=== PATIENT | female | born 1990 | race African-American/Black ===

== ENCOUNTER 2019-01-20 15:45 | Emergency (ER) | payer OTHER ==
[2019-01-20 16:03] VITALS: BP 98/61; PULSE 78; TEMP 98.1; BMI 21.4
--- NOTE | 2019-01-20 16:07 | PDOC ---
Attending Attestation - HPI HPI: 01/20/19 18:13 The patient is a 28 year old female, from [facility], with a significant past medical history of multi-substance abuse with EtOH dependence who presents to the emergency department intoxicated with seizure like symptoms. Patient reports she told [facility] that she had a shaking episode prior to her arrival to the ED. The patient reports she fell yesterday but is unsure if she hit her head. Patient notes her last drink was this morning but has a history of drinking 1 bottle of vodka per day. Patient is a poor historian. The patient denies chest pain, or shortness of breath The patient denies fever, chills, nausea, vomit, diarrhea or constipation. Allergies: NKDA Past surgical history: None reported Social history: multi-substance abuse with EtOH PCP: Dr. Kylie Delacruz - Physicial Exam PE: 01/20/19 18:14 GENERAL: (+) tremors, (+) intoxicated, (+) poor historian. Awake, alert, in no acute distress HEAD: No signs of trauma EYES: PERRLA, EOMI, sclera anicteric, conjunctiva clear ENT: (+) tongue fasciculation. Auricles normal inspection, hearing grossly normal, nares patent, oropharynx clear without exudates. Moist mucosa NECK: Normal ROM, supple, no lymphadenopathy, JVD, or masses LUNGS: Breath sounds equal, clear to auscultation bilaterally. No wheezes, and no crackles HEART: Regular rate and rhythm, normal S1 and S2, no murmurs, rubs or gallops ABDOMEN: Soft, nontender, normoactive bowel sounds. No guarding, no rebound. No masses EXTREMITIES: Normal range of motion, no edema. No clubbing or cyanosis. No cords, erythema, or tenderness NEUROLOGICAL: Cranial nerves II through XII grossly intact. Normal speech, normal gait SKIN: Warm, Dry, normal turgor, no rashes or lesions noted. <Kylah Logan - Last Filed: 01/20/19 18:13> - Resident Resident Name: Bib Swartz - ED Attending Attestation I have performed the following: I have examined & evaluated the patient, The case was reviewed & discussed with the resident, I agree w/resident's findings & plan, Exceptions are as noted - Medical Decision Making 01/20/19 16:07 I, Dr. Lizzie Rodriguez DO, attest that this document has been prepared under my direction and personally reviewed by me in its entirety. I further attest, that it accurately reflects all work, treatment, procedures and medical decision -making performed by me. 01/20/19 17:11 a/p: 28yo female with etoh and substance abuse -pt sent from [facility] for poss seizure activity -pt denies seizure today, states she fell going up the stairs yesterday, poss seizure activity bc she remembers her limbs shaking. unsure if loc. no tongue biting or loss of urine/bowel control -will send labs, mild hand tremors and tongue fasciculations -will give banana bag and librium -will medically clear for park care 01/20/19 20:12 h/h stable low tsh, will need free t4 alcohol pending pt up and walking around the ED, speaking in clear sentences 01/20/19 20:13 pt has walked out of the ED. pt has eloped from the ED <Lizzie Rodriguez - Last Filed: 01/20/19 20:14> *DC/Admit/Observation/Transfer <Lizzie Rodriguez - Last Filed: 01/20/19 20:14> Diagnosis at time of Disposition: Alcohol dependence - Discharge Dispostion Disposition: ELOPED Condition at time of disposition: Unchanged/Unknown - Referrals Referrals: Kylie Delacruz MD [Primary Care Provider] - - Patient Instructions - Post Discharge Activity Heart Score/ECG Review - ECG Intrepretation Comment:: 01/20/19 17:53 sinus at 89, nl axis, nl interval, no acute st/t wave findings <Lizzie Rodriguez - Last Filed: 01/20/19 20:14> Attestations - Attestations 01/20/19 18:15 Documentation prepared by Kylah Logan, acting as nurses medical assistants phlebotomists for Lizzie Rodriguez DO, MD <Kylah Logan - Last Filed: 01/20/19 18:13>
[2019-01-20] MEDS ORDERED: FOLIC ACID INJECTION - 1 MG, THIAMINE HCL 100 MG, MULTIVIT INJECTION ADULT 10 ML in SOD... IVPB ONE (16:40)
[2019-01-20] MEDS ORDERED: chlordiazePOXIDE HCL 25 MG CAPSULE PO ONE (16:41)
--- NOTE | 2019-01-20 16:55 | PDOC ---
History of Present Illness - General Chief Complaint: Alcohol intoxication Stated Complaint: Syncope/Near Syncope Time Seen by Provider: 01/20/19 16:00 - History of Present Illness Initial Comments: 01/20/19 16:50 28 yo F h/o muti-substance abuse with EtOH dependence sent from [facility] for seizure activity precaution. She presented to [facility] and told the staff in waiting room that she's about to have a seizure. Patient was then sent to [facility] ED for further evaluation. However, patient stated that she drinks a lot every day since 19 years old, 1 bottle of vodka. Her last drink was this morning 2am. She also endorses headache, L flank pain, shaking, sweaty but denies chest pain , shortness of breath, urinary symptom, n/v, fever or chills. Past History - Past Medical History Allergies/Adverse Reactions: Allergies Allergy/AdvReac Type Severity Reaction Status Date / Time No Known Allergies Allergy Verified 10/02/16 20:39 Home Medications: Ambulatory Orders Citalopram Hydrobromide [Celexa -] 15 mg PO DAILY 01/05/15 Escitalopram Oxalate [Lexapro -] 10 mg PO DAILY 01/05/15 traZODone HCL [Desyrel -] 50 mg PO HS #30 tablet 01/06/15 Citalopram Hydrobromide [Celexa -] 10 mg PO DAILY #90 tablet 10/03/16 Mirtazapine [Remeron -] 15 mg PO HS #30 tablet 10/03/16 Anemia: No Asthma: No Cancer: No Cardiac Disorders: No CVA: No COPD: No CHF: No Dementia: No Diabetes: No GI Disorders: No Disorders: No HTN: No Hypercholesterolemia: No Kidney Stones: No Liver Disease: No Seizures: Yes Thyroid Disease: No - Surgical History Abdominal Surgery: No Appendectomy: No Cardiac Surgery: No Cholecystectomy: No Lung Surgery: No Neurologic Surgery: No Orthopedic Surgery: No - Suicide/Smoking/Psychosocial Hx Smoking History: Never smoked Have you smoked in the past 12 months: No Number of Cigarettes Smoked Daily: 20 'Breaking Loose' booklet given: 10/02/16 Hx Alcohol Use: Yes Drug/Substance Use Hx: No Substance Use Type: Alcohol Hx Substance Use Treatment: Yes Review of Systems - Review of Systems Able to Perform ROS?: Yes Is the patient limited Tristanian proficient: Yes Constitutional: No: Chills, Fever, Weakness Respiratory: No: Cough, Shortness of Breath ABD/GI: No: Diarrhea : Yes: Flank Pain. No: Burning, Dysuria, Hematuria, Urgency Neurological: Yes: Headache, Seizure, Tremors *Physical Exam - Vital Signs Last Vital Signs Temp Pulse Resp BP Pulse Ox 98.1 F 78 16 98/61 100 01/20/19 15:59 01/20/19 15:59 01/20/19 15:59 01/20/19 15:59 01/20/19 15:59 - Physical Exam General Appearance: Yes: Alcohol on Breath, Intoxicated Respiratory/Chest: positive: Lungs Clear, Normal Breath Sounds Cardiovascular: positive: S1, S2, Tachycardia. negative: Murmur Musculoskeletal: positive: CVA Tenderness (L) Neurologic: positive: Alert, Confused, Disoriented (to time) Moderate Sedation - Procedure Monitoring Vital Signs: Procedure Monitoring Vital Signs Temperature 98.1 F 01/20/19 15:59 Pulse Rate 78 01/20/19 15:59 Respiratory Rate 16 01/20/19 15:59 Blood Pressure 98/61 01/20/19 15:59 O2 Sat by Pulse Oximetry (%) 100 01/20/19 15:59 ED Treatment Course - LABORATORY CBC & Chemistry Diagram: 01/20/19 18:20 01/20/19 18:20 *DC/Admit/Observation/Transfer Diagnosis at time of Disposition: Alcohol dependence Qualifiers: Substance use status: unspecified alcohol-induced disorder Qualified Code(s): F10.29 - Alcohol dependence with unspecified alcohol-induced disorder - Discharge Dispostion Disposition: ELOPED Condition at time of disposition: Unchanged/Unknown - Referrals Referrals: Kylie Delacruz MD [Primary Care Provider] - - Patient Instructions - Post Discharge Activity
[2019-01-20 18:30] LABS: BASO % 1.4 % (0-2.0); EOS % 0.9 % (0-4.5); HEMATOCRIT 38.4 % (32.4-45.2); HEMOGLOBIN 13.3 GM/dL (10.7-15.3); LYMPH % 42.9 % (8-40); MCH 31.7 pg (25.7-33.7); MCHC 34.7 g/dl (32.0-36.0); MEAN CELL VOLUME 91.2 fl (80-96); MEAN PLT VOLUME 8.1 fl (7.5-11.1); MONO % 4.8 % (3.8-10.2); RBC 4.21 M/mm3 (3.60-5.2); RDW 18.5 % (11.6-15.6)
[2019-01-20 18:48] LABS: PLATELET COUNT 345 K/MM3 (134-434); PLATELET ESTIMATE ADEQUATE
[2019-01-20 19:28] LABS: ALBUMIN 3.9 g/dl (3.4-5.0); ALK PHOS 84 U/L (45-117); ANION GAP 7 MMOL/L (8-16); BILIRUBIN,TOTAL 0.3 mg/dL (0.2-1); BLOOD UREA NITROGEN 7 mg/dL (7-18); CALCIUM 8.7 mg/dL (8.5-10.1); CHLORIDE 107 mmol/L (98-107); CO2 25 mmol/L (21-32); CREATININE 0.7 mg/dL (0.55-1.3); GLUCOSE,RANDOM 61 mg/dL (74-106); POTASSIUM 4.9 mmol/L (3.5-5.1); SGOT/AST 62 U/L (15-37); SGPT/ALT 23 U/L (13-61); SODIUM 139 mmol/L (136-145); TOT PROT 9.3 g/dl (6.4-8.2)
--- NOTE | 2019-01-21 06:57 | PDOC ---
*Physical Exam - Vital Signs Last Vital Signs Temp Pulse Resp BP Pulse Ox 98.1 F 78 16 98/61 100 01/20/19 15:59 01/20/19 15:59 01/20/19 15:59 01/20/19 15:59 01/20/19 15:59 ED Treatment Course - LABORATORY CBC & Chemistry Diagram: 01/20/19 18:20 01/20/19 18:20 - ADDITIONAL ORDERS Additional order review: Laboratory Results 01/20/19 01/20/19 01/20/19 20:04 18:26 18:20 Sodium 139 Potassium 4.9 Chloride 107 Carbon Dioxide 25 Anion Gap 7 L BUN 7 Creatinine 0.7 Creat Clearance w eGFR > 60 Random Glucose 61 L Calcium 8.7 Magnesium 2.0 Total Bilirubin 0.3 AST 62 H ALT 23 Alkaline Phosphatase 84 Total Protein 9.3 H Albumin 3.9 TSH 0.33 L Serum , Qual Negative Alcohol, Quantitative 297.1 H 01/20/19 18:20 RBC 4.21 MCV 91.2 MCHC 34.7 RDW 18.5 H MPV 8.1 D Neutrophils % 50.0 Lymphocytes % 42.9 H Monocytes % 4.8 Eosinophils % 0.9 Basophils % 1.4 - Medications Given in the ED: ED Medications Discontinued Medications Generic Name Dose Route Start Last Admin Trade Name Freq PRN Reason Stop Dose Admin Chlordiazepoxide HCl 25 mg 01/20/19 16:41 01/20/19 17:49 Librium - PO 01/20/19 16:42 Not Given ONCE ONE Folic Acid 1 mg/ Thiamine HCl 1,000 mls @ 125 mls/hr 01/20/19 16:40 01/20/19 22:44 100 mg/ Multivitamins/Minerals IVPB 01/21/19 00:39 Not Given 10 ml/ Sodium Chloride ONCE ONE Medical Decision Making - Medical Decision Making 01/21/19 06:56 Pt signed out to me by Dr. Swartz 28 yo F h/o muti-substance abuse with EtOH dependence sent from [facility] for seizure activity precaution. She presented to [facility] and told the staff in waiting room that she's about to have a seizure. negative, EtOH level in 200s. CT head negative. Pt eloped *DC/Admit/Observation/Transfer Diagnosis at time of Disposition: Alcohol dependence Qualifiers: Substance use status: unspecified alcohol-induced disorder Qualified Code(s): F10.29 - Alcohol dependence with unspecified alcohol-induced disorder - Discharge Dispostion Disposition: ELOPED Condition at time of disposition: Unchanged/Unknown - Referrals Referrals: Kylie Delacruz MD [Primary Care Provider] - - Patient Instructions - Post Discharge Activity
--- NOTE | 2019-01-21 10:50 | EKG ---
Test Reason : Blood Pressure : / mmHG Vent. Rate : 089 BPM Atrial Rate : 089 BPM P-R Int : 152 ms QRS Dur : 074 ms QT Int : 384 ms P-R-T Axes : 050 057 044 degrees QTc Int : 467 ms NORMAL SINUS RHYTHM POSSIBLE LEFT ATRIAL ENLARGEMENT POSSIBLE ANTERIOR INFARCT , AGE UNDETERMINED ABNORMAL ECG NO PREVIOUS ECGS AVAILABLE Confirmed by CLAUDETTE ROBLEDO MD ([id number]) on 01/21/2019 10:50:16 AM Referred By: Confirmed By:CLAUDETTE ROBLEDO MD
== END 2019-01-20 22:20 | disposition left against medical advice (07) ==
LOC: SUPCPDRO 15:45 → JER 15:45
DX: F10.220 Alcohol dependence with intoxication, uncomplicated (principal); Y90.8 Blood alcohol level of 240 mg/100 ml or more
CPT/HCPCS: 70450-TC; 80053; 80307; 83735; 84443; 84703; 85025; 93005; 93010; 99282-25; J7030

== ENCOUNTER 2019-07-21 17:05 | Inpatient (IN) | payer OTHER ==
[2019-07-21 18:07] VITALS: BMI 24.0
--- NOTE | 2019-07-21 20:43 | HP ---
CIWA Score Nausea/Vomitin-Mild Nausea/No Vomiting Muscle Tremors: 3 Anxiety: 3 Agitation: 4-Moderately Restless Paroxysmal Sweats: 1-Minimal Palms Moist Orientation: 0-Oriented Tacttile Disturbances: 1-Very Mild Itch/Numbness Auditory Disturbances: 0-None Visual Disturbances: 3-Moderate Sensitivity Headache: 0-None Present CIWA-Ar Total Score: 16 - Admission Criteria OASAS Guidelines: Admission for Medically Managed Detox: Requires at least one of the followin. CIWA greater than 12 2. Seizures within the past 24 hours 3. Delirium tremens within the past 24 hours 4. Hallucinations within the past 24 hours 5. Acute intervention needed for co occurring medical disorder 6. Acute intervention needed for co occurring psychiatric disorder 7. Severe withdrawal that cannot be handled at a lower level of care (continued vomiting, continued diarrhea, abnormal vital signs) requiring intravenous medication and/or fluids 8. Patient presents the following: CIWA greater than 12 Admission Criteria Met: Admission criteria met Admission ROS S - [facility] Chief Complaint: I WASNT FEEING GOOD I COULDNT TAKE IT Allergies/Adverse Reactions: Allergies Allergy/AdvReac Type Severity Reaction Status Date / Time No Known Allergies Allergy Verified 07/21/19 18:01 History of Present Illness: ETOH SINCE AGE 21, PROBLEMATIC SINCE AGE 22. 8 MOS ABSTINENCE IN 2018. DRINKING 8 CANS BEER DAILY. SHAKY 3 HOURS SP LAST DRINK - Ebola screening Have you traveled outside of the country in the last 21 days: No (N) Have you had contact with anyone from an Ebola affected area: No Do you have a fever: No - Review of Systems Constitutional: Unexplained wgt Loss EENT: reports: Recent change in vision Respiratory: reports: No Symptoms reported Cardiac: reports: No Symptoms Reported GI: reports: No Symptoms Reported : reports: No Symptoms Reported Musculoskeletal: reports: No Symptoms Reported Integumentary: reports: No Symptoms Reported Neuro: reports: Tremors Endocrine: reports: No Symptoms Reported Hematology: reports: No Symptoms Reported Psychiatric: reports: Judgement Intact, Mood/Affect Appropiate, Orientated x3 Patient History - Patient Medical History Hx Anemia: No Hx Asthma: No Hx Chronic Obstructive Pulmonary Disease (COPD): No Hx Cancer: No Hx Cardiac Disorders: No Hx Congestive Heart Failure: No Hx Hypertension: No Hx Hypercholesterolemia: No Hx Pacemaker: No HX Cerebrovascular Accident: No Hx Seizures: Yes Hx Dementia: No Hx Diabetes: No Hx Gastrointestinal Disorders: No Hx Liver Disease: No Hx Genitourinary Disorders: No Hx Sexually Transmitted Disorders: No Hx Renal Disease (ESRD): No Hx Thyroid Disease: No Hx Human Immunodeficiency Virus (HIV): No (LAST 08/25 NEGATIVE) Hx Hepatitis C: No Hx Depression: Yes (WAS TAKING LEXAPRO NOW OFF, SEROQUEL 25MG) Hx Suicide Attempt: No Hx Bipolar Disorder: No Hx Schizophrenia: No - Patient Surgical History Past Surgical History: No Hx Neurologic Surgery: No Hx Cataract Extraction: No Hx Cardiac Surgery: No Hx Lung Surgery: No Hx Breast Surgery: No Hx Breast Biopsy: No Hx Abdominal Surgery: No Hx Appendectomy: No Hx Cholecystectomy: No Hx Genitourinary Surgery: No Hx Section: No Hx Orthopedic Surgery: No Anesthesia Reaction: No - PPD History Date: 10/04/16 - Reproductive History Last Menstrual Period: 07/21/19 Patient : No - Smoking Cessation Smoking history: Never smoked Have you smoked in the past 12 months: No Aproximately how many cigarettes per day: 20 Hx Chewing Tobacco Use: No - Substances abused Alcohol Substance route: Oral Frequency: Daily Amount used: BUDWEISER - 8 CANS Age of first use: 21 Date of last use: 07/20/19 Family Disease History - Family Disease History Family Disease History: Other: Grandparent (ALCOHOL, FROM CVA), Sister ( ALCOHOL) Admission Physical Exam BHS - Vital Signs Vital Signs: Vital Signs - 24 hr 07/21/19 18:03 Temperature 98.5 F Pulse Rate 87 Respiratory 20 Rate Blood Pressure 133/88 - Physical General Appearance: Yes: Disheveled, Tremorous, Irritable, Anxious HEENTM: Yes: EOMI Respiratory: Yes: Within Normal Limits, Chest Non-Tender, Lungs Clear Neck: Yes: Within Normal Limits, No masses,lesions,Nodules Breast: Yes: Breast Exam Deferred Cardiology: Yes: Within Normal Limits, Regular Rhythm, Regular Rate, S1, S2 Abdominal: Yes: Normal Bowel Sounds, Non Tender Genitourinary: Yes: Within Normal Limits Back: Yes: Within Normal Limits, Normal Inspection Musculoskeletal: Yes: full range of Motion, Gait Steady, Pelvis Stable Extremities: Yes: Within Normal Limits, Normal Capillary Refill, Normal Inspection, Normal Range of Motion, Non-Tender Neurological: Yes: Within Normal Limits, 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, Fully Oriented, Alert, Motor Strength 5/5, Normal Mood/Affect Integumentary: Yes: Within Normal Limits, Normal Color - Diagnostic (1) Alcohol dependence with uncomplicated withdrawal Current Visit: Yes Status: Acute (2) Alcohol related seizure Current Visit: No Status: Resolved Cleared for Admission S - Detox or Rehab [facility] Level of Care: Medically Supervised Breathalyzer - Breathalyzer Breathalyzer: 0.100 Urine Drug Screen - Test Device Lot number: [id number] Expiration date: 04/09/21 - Control Is test valid?: Yes - Results Drug screen NEGATIVE: No Urine drug screen results: BZO-Benzodiazepines Inpatient Rehab Admission - Rehab Decision to Admit Inpatient rehab admission?: No
[2019-07-21] MEDS ORDERED: BISMUTH SUBSALICYLATE 524 MG/30 ML UD PO PRN (20:52)
[2019-07-21] MEDS ORDERED: chlordiazePOXIDE HCL 10 MG CAPSULE PO PRN (20:52)
[2019-07-21] MEDS ORDERED: MAGNESIUM CITRATE 300 ML BOTTLE PO PRN (20:52)
[2019-07-21] MEDS ORDERED: ACETAMINOPHEN 325 MG TABLET (FP) PO PRN (20:52)
[2019-07-21] MEDS ORDERED: MENTHOL/PHENOL 1 EACH UD MM PRN (20:52)
[2019-07-21] MEDS ORDERED: MAGNESIUM HYDROX 2400MG/30ML ORAL SUSPENSION 30 ML CUP PO PRN (20:52)
[2019-07-21] MEDS ORDERED: MAG HYDROX/AL HYDROX/SIMETH 30 ML UNIT-DOSE CUP PO PRN (20:52)
[2019-07-21] MEDS ORDERED: MELATONIN 5 MG TABLETS PO PRN (20:52)
[2019-07-21] MEDS ORDERED: METHOCARBAMOL 500 MG TABLET PO PRN (20:52)
[2019-07-21] MEDS ORDERED: IBUPROFEN 400 MG TABLET (FP) PO PRN (20:52)
[2019-07-21] MEDS: THIAMINE HCL 100 MG TABLET (FP) PO SCH (21:41)
[2019-07-21] MEDS: chlordiazePOXIDE HCL 25 MG CAPSULE PO SCH (21:41)
[2019-07-22] MEDS: chlordiazePOXIDE HCL 25 MG CAPSULE PO SCH ×3 (05:50→22:03)
[2019-07-22] MEDS: PRENATAL VITAMINS W/ FOLIC ACID TABLET (FP) PO SCH (09:49)
--- NOTE | 2019-07-22 09:59 | PN ---
[facility] CIWA - CIWA Score Nausea/Vomitin-Mild Nausea/No Vomiting Muscle Tremors: 2 Anxiety: 4-Mod. Anxious/Guarded Agitation: 3 Paroxysmal Sweats: 2 Orientation: 0-Oriented Tacttile Disturbances: 0-None Auditory Disturbances: 0-None Visual Disturbances: 0-None Headache: 0-None Present CIWA-Ar Total Score: 12 S Progress Note (SOAP) Subjective: 29 years old female 3rd patient [facility] admission since 2014 was admitted on 07/21/10 for alcohol withdrawal sx management doing well with librium detox regimen long history of GERD c/o indigestion abdomen soft no rebound tenderness, + hyperactive bowel sound x 4 report diarrhea encourage to have pepto discontinue motrin and begin zantac 150 mg po bid Objective: 07/22/19 10:02 Vital Signs Temperature 97.5 F L 07/22/19 09:15 Pulse Rate 81 07/22/19 09:15 Respiratory Rate 18 07/22/19 09:15 Blood Pressure 105/65 07/22/19 09:15 O2 Sat by Pulse Oximetry (%) Laboratory Last Values WBC 5.9 K/mm3 (4.0-10.0) 07/22/19 08:00 RBC 4.14 M/mm3 (3.60-5.2) 07/22/19 08:00 Hgb 11.9 GM/dL (10.7-15.3) 07/22/19 08:00 Hct 35.9 % (32.4-45.2) 07/22/19 08:00 MCV 86.7 fl (80-96) 07/22/19 08:00 MCH 28.7 pg (25.7-33.7) 07/22/19 08:00 MCHC 33.2 g/dl (32.0-36.0) 07/22/19 08:00 RDW 16.0 % (11.6-15.6) H 07/22/19 08:00 Plt Count 405 K/MM3 (134-434) 07/22/19 08:00 MPV 7.5 fl (7.5-11.1) 07/22/19 08:00 POC Urine HCG, Qual Negative 07/21/19 18:51 lab noted Assessment: 07/22/19 10:02 alcohol withdrawal sx Plan: continue librium detox regimen
[2019-07-22 10:00] LABS: HEMATOCRIT 35.9 % (32.4-45.2); HEMOGLOBIN 11.9 GM/dL (10.7-15.3); MCH 28.7 pg (25.7-33.7); MCHC 33.2 g/dl (32.0-36.0); MEAN CELL VOLUME 86.7 fl (80-96); MEAN PLT VOLUME 7.5 fl (7.5-11.1); PLATELET COUNT 405 K/MM3 (134-434); RBC 4.14 M/mm3 (3.60-5.2); WHITE BLOOD COUNT 5.9 K/mm3 (4.0-10.0)
[2019-07-22 10:04] LABS: ALBUMIN 3.5 g/dl (3.4-5.0); BILIRUBIN,TOTAL 0.9 mg/dL (0.2-1); BLOOD UREA NITROGEN 9.8 mg/dL (7-18); CREATININE 0.8 mg/dL (0.55-1.3); POTASSIUM 3.9 mmol/L (3.5-5.1); TOT PROT 7.6 g/dl (6.4-8.2)
--- NOTE | 2019-07-22 11:13 | CONSULT ---
[facility] Psychiatric Consult - Data Date of interview: 07/22/19 Admission source: [facility] Identifying data: Patient is a 29 year old single female, without children, unemployed, residing and financially supported by mother. This is one of multiple admissions for patient. Patient admitted to for alcohol dependence. Substance Abuse History: - Smoking Cessation. Smoking history: Never smoked. Have you smoked in the past 12 months: No. Aproximately how many cigarettes per day: 20. Hx Chewing Tobacco Use: No. - Substances abused. Alcohol. Substance route: Oral. Frequency: Daily. Amount used: BUDWEISER - 8 CANS. Age of first use: 21. Date of last use: 07/20/19 Medical History: denies. Psychiatric History: Patient denies history of psychiatric hospitalizations and suicide attempts. States her first psychiatric contact occured four months ago after she decided to see a psychiatrist at the [facility] in the [place] to address her depression. Reports only seeing the psychiatrist for two months and was prescribed wellbutrin (unknown dose) and Seroquel 25mg HS. She relapsed and discontinued her medications. At present patient reports difficulty sleeping. Physical/Sexual Abuse/Trauma History: denies. Mental Status Exam - Mental Status Exam Alert and Oriented to: Time, Place, Person Cognitive Function: Good Patient Appearance: Well Groomed Mood: Withdrawn Affect: Mood Congruent Patient Behavior: Fatigued, Cooperative Speech Pattern: Clear Voice Loudness: Moderately Soft/Quiet Thought Process: Goal Oriented Thought Disorder: Not Present Hallucinations: Denies Suicidal Ideation: Denies Homicidal Ideation: Denies Insight/Judgement: Poor Sleep: Poorly Appetite: Fair Muscle strength/Tone: Normal Gait/Station: Normal Psychiatric Findings - Problem List ([place] 1, 2,3) (1) Alcohol-induced mood disorder Current Visit: Yes Status: Acute (2) Alcohol dependence with uncomplicated withdrawal Current Visit: Yes Status: Acute (3) Alcohol dependence Current Visit: Yes Status: Acute Qualifiers: Substance use status: unspecified alcohol-induced disorder Qualified Code(s ): F10.29 - Alcohol dependence with unspecified alcohol-induced disorder (4) Alcohol-induced sleep disorder Current Visit: Yes Status: Acute - Initial Treatment Plan Initial Treatment Plan: Psychoeducation provided. Detoxification in progress. Will order Seroquel 25mg HS. Benefits and side effects discussed. Verbal consent given.
[2019-07-22] MEDS: RANITIDINE HCL 150 MG TABLET (FP) PO SCH ×2 (11:45→22:03)
[2019-07-22] MEDS: QUEtiapine FUMARATE 25 MG TABLET (FP) PO SCH (22:03)
[2019-07-22] MEDS: THIAMINE HCL 100 MG TABLET (FP) PO SCH (22:03)
[2019-07-23] MEDS: chlordiazePOXIDE 5 MG CAPSULE PO SCH ×3 (05:37→22:29)
[2019-07-23] MEDS: RANITIDINE HCL 150 MG TABLET (FP) PO SCH ×2 (09:54→22:29)
[2019-07-23] MEDS: PRENATAL VITAMINS W/ FOLIC ACID TABLET (FP) PO SCH (09:54)
[2019-07-23] MEDS: hydrOXYzine PAMOATE 25 MG CAPSULE (FP) PO PRN (09:59)
--- NOTE | 2019-07-23 14:54 | PN ---
S CIWA - CIWA Score Nausea/Vomitin Muscle Tremors: 2 Anxiety: 2 Agitation: 2 Paroxysmal Sweats: No Perspiration Orientation: 0-Oriented Tacttile Disturbances: 1-Very Mild Itch/Numbness Auditory Disturbances: 0-None Visual Disturbances: 0-None Headache: 2-Mild CIWA-Ar Total Score: 11 BHS Progress Note (SOAP) Subjective: alert,irritable,anxious,interrupted sleep,tremor Objective: 07/23/19 14:53 Laboratory Last Values WBC 5.9 K/mm3 (4.0-10.0) 07/22/19 08:00 RBC 4.14 M/mm3 (3.60-5.2) 07/22/19 08:00 Hgb 11.9 GM/dL (10.7-15.3) 07/22/19 08:00 Hct 35.9 % (32.4-45.2) 07/22/19 08:00 MCV 86.7 fl (80-96) 07/22/19 08:00 MCH 28.7 pg (25.7-33.7) 07/22/19 08:00 MCHC 33.2 g/dl (32.0-36.0) 07/22/19 08:00 RDW 16.0 % (11.6-15.6) H 07/22/19 08:00 Plt Count 405 K/MM3 (134-434) 07/22/19 08:00 MPV 7.5 fl (7.5-11.1) 07/22/19 08:00 Sodium 136 mmol/L (136-145) 07/22/19 08:00 Potassium 3.9 mmol/L (3.5-5.1) 07/22/19 08:00 Chloride 103 mmol/L (98-107) 07/22/19 08:00 Carbon Dioxide 26 mmol/L (21-32) 07/22/19 08:00 Anion Gap 7 MMOL/L (8-16) L 07/22/19 08:00 BUN 9.8 mg/dL (7-18) 07/22/19 08:00 Creatinine 0.8 mg/dL (0.55-1.3) 07/22/19 08:00 Est GFR (CKD-EPI)AfAm 117.10 07/22/19 08:00 Est GFR (CKD-EPI)NonAf 101.04 09/12/19 08:00 Random Glucose 75 mg/dL (74-106) 07/22/19 08:00 Calcium 9.0 mg/dL (8.5-10.1) 07/22/19 08:00 Total Bilirubin 0.9 mg/dL (0.2-1) 07/22/19 08:00 AST 31 U/L (15-37) 07/22/19 08:00 ALT 22 U/L (13-61) 07/22/19 08:00 Alkaline Phosphatase 60 U/L (45-117) 07/22/19 08:00 Total Protein 7.6 g/dl (6.4-8.2) 07/22/19 08:00 Albumin 3.5 g/dl (3.4-5.0) 07/22/19 08:00 POC Urine HCG, Qual Negative 07/21/19 18:51 RPR Titer Nonreactive (NONREACTIVE) 07/22/19 08:00 Assessment: 07/23/19 14:54 withdrawal symptom Plan: continue detox,librium regimen
[2019-07-23] MEDS: THIAMINE HCL 100 MG TABLET (FP) PO SCH (22:29)
[2019-07-23] MEDS: QUEtiapine FUMARATE 25 MG TABLET (FP) PO SCH (22:29)
[2019-07-24] MEDS ORDERED: chlordiazePOXIDE HCL 10 MG CAPSULE PO PRN
[2019-07-24] MEDS: chlordiazePOXIDE HCL 10 MG CAPSULE PO SCH ×3 (05:50→22:30)
[2019-07-24] MEDS: hydrOXYzine PAMOATE 25 MG CAPSULE (FP) PO PRN ×2 (05:52→17:30)
[2019-07-24] MEDS: RANITIDINE HCL 150 MG TABLET (FP) PO SCH ×2 (10:42→22:29)
[2019-07-24] MEDS: PRENATAL VITAMINS W/ FOLIC ACID TABLET (FP) PO SCH (10:42)
[2019-07-24] MEDS: ACETAMINOPHEN 325 MG TABLET (FP) PO PRN ×2 (11:00→22:30)
--- NOTE | 2019-07-24 18:06 | PN ---
S CIWA - CIWA Score Nausea/Vomitin-No Nausea/No Vomiting Muscle Tremors: 3 Anxiety: 3 Agitation: 2 Paroxysmal Sweats: No Perspiration Orientation: 0-Oriented Tacttile Disturbances: 0-None Auditory Disturbances: 0-None Visual Disturbances: 0-None Headache: 0-None Present CIWA-Ar Total Score: 8 BHS Progress Note (SOAP) Subjective: Tremors, Anxious. Objective: PATIENT A & O X 3, OBSERVED AMBULATING ON DETOX UNIT UNASSISTED. IN NO ACUTE DISTRESS. 07/24/19 18:05 Vital Signs Temperature 98.3 F 07/24/19 17:49 Pulse Rate 90 07/24/19 17:49 Respiratory Rate 18 07/24/19 17:49 Blood Pressure 120/86 07/24/19 17:49 O2 Sat by Pulse Oximetry (%) Laboratory Tests 07/21/19 07/22/19 07/22/19 18:51 08:00 08:00 WBC 5.9 RBC 4.14 Hgb 11.9 Hct 35.9 MCV 86.7 MCH 28.7 MCHC 33.2 RDW 16.0 H Plt Count 405 MPV 7.5 Sodium 136 Potassium 3.9 Chloride 103 Carbon Dioxide 26 Anion Gap 7 L BUN 9.8 Creatinine 0.8 Est GFR (CKD-EPI)AfAm 117.10 Est GFR (CKD-EPI)NonAf 101.04 Random Glucose 75 Calcium 9.0 Total Bilirubin 0.9 AST 31 ALT 22 Alkaline Phosphatase 60 Total Protein 7.6 Albumin 3.5 POC Urine HCG, Qual Negative RPR Titer 07/22/19 08:00 WBC RBC Hgb Hct MCV MCH MCHC RDW Plt Count MPV Sodium Potassium Chloride Carbon Dioxide Anion Gap BUN Creatinine Est GFR (CKD-EPI)AfAm Est GFR (CKD-EPI)NonAf Random Glucose Calcium Total Bilirubin AST ALT Alkaline Phosphatase Total Protein Albumin POC Urine HCG, Qual RPR Titer Nonreactive LABS NOTED. Assessment: 07/24/19 18:05 WITHDRAWAL SYMPTOMS. Plan: CONTINUE DETOX. PATIENT SCHEDULED FOR D/C FROM DETOX UNIT TOMORROW.
[2019-07-24] MEDS: QUEtiapine FUMARATE 25 MG TABLET (FP) PO SCH (22:29)
[2019-07-24] MEDS: THIAMINE HCL 100 MG TABLET (FP) PO SCH (22:29)
[2019-07-25] MEDS ORDERED: chlordiazePOXIDE HCL 10 MG CAPSULE PO ONE (05:00)
[2019-07-25] MEDS: hydrOXYzine PAMOATE 25 MG CAPSULE (FP) PO PRN (06:15)
[2019-07-25 09:17] VITALS: BP 112/81; PULSE 77; TEMP 98.3
--- NOTE | 2019-07-25 15:15 | DS ---
[facility] Detox Discharge Summary Admission Date: 07/21/19 Discharge Date: 07/25/19 - History Present History: Alcohol Dependence Additional Comments: 29 years old female admitted on 07/21/19 for alcohol withdrawal sx management did well with librium detox regimen no complication through out the detox regimen seen by psychiatrist treated with seroquel patient tolerate well patient is alert oriented x 3 cardiac S1S2 regular rate rhythm ekg indicates atrial enlargement respiratory clear lung bilaterally on auscultation skin warm dry - Physical Exam Results Vital Signs: Vital Signs Temperature 98.3 F 07/25/19 09:16 Pulse Rate 77 07/25/19 09:16 Respiratory Rate 18 07/25/19 09:16 Blood Pressure 112/81 07/25/19 09:16 O2 Sat by Pulse Oximetry (%) Pertinent Admission Physical Exam Findings: alcohol withdrawal sx Laboratory Last Values WBC 5.9 K/mm3 (4.0-10.0) 07/22/19 08:00 RBC 4.14 M/mm3 (3.60-5.2) 07/22/19 08:00 Hgb 11.9 GM/dL (10.7-15.3) 07/22/19 08:00 Hct 35.9 % (32.4-45.2) 07/22/19 08:00 MCV 86.7 fl (80-96) 07/22/19 08:00 MCH 28.7 pg (25.7-33.7) 07/22/19 08:00 MCHC 33.2 g/dl (32.0-36.0) 07/22/19 08:00 RDW 16.0 % (11.6-15.6) H 07/22/19 08:00 Plt Count 405 K/MM3 (134-434) 07/22/19 08:00 MPV 7.5 fl (7.5-11.1) 07/22/19 08:00 Sodium 136 mmol/L (136-145) 07/22/19 08:00 Potassium 3.9 mmol/L (3.5-5.1) 07/22/19 08:00 Chloride 103 mmol/L (98-107) 07/22/19 08:00 Carbon Dioxide 26 mmol/L (21-32) 07/22/19 08:00 Anion Gap 7 MMOL/L (8-16) L 07/22/19 08:00 BUN 9.8 mg/dL (7-18) 07/22/19 08:00 Creatinine 0.8 mg/dL (0.55-1.3) 07/22/19 08:00 Est GFR (CKD-EPI)AfAm 117.10 07/22/19 08:00 Est GFR (CKD-EPI)NonAf 101.04 07/22/19 08:00 Random Glucose 75 mg/dL (74-106) 07/22/19 08:00 Calcium 9.0 mg/dL (8.5-10.1) 07/22/19 08:00 Total Bilirubin 0.9 mg/dL (0.2-1) 07/22/19 08:00 AST 31 U/L (15-37) 07/22/19 08:00 ALT 22 U/L (13-61) 07/22/19 08:00 Alkaline Phosphatase 60 U/L (45-117) 07/22/19 08:00 Total Protein 7.6 g/dl (6.4-8.2) 07/22/19 08:00 Albumin 3.5 g/dl (3.4-5.0) 07/22/19 08:00 POC Urine HCG, Qual Negative 07/21/19 18:51 RPR Titer Nonreactive (NONREACTIVE) 07/22/19 08:00 lab noted - Treatment Hospital Course: Detox Protocol Followed, Detoxed Safely, Responded well, Discharged Condition Good, Rehab Referral Accepted Patient has Accepted a Rehab Referral to: [facility] - Medication Discharge Medications: Ambulatory Orders Escitalopram Oxalate [Lexapro -] 10 mg PO DAILY 01/05/15 Quetiapine Fumarate [Seroquel -] 25 mg PO HS 07/21/19 - Diagnosis (1) Alcohol dependence with uncomplicated withdrawal Status: Acute (2) Nicotine dependence Status: Acute Qualifiers: Nicotine product type: cigarettes Substance use status: in withdrawal Qualified Code(s): F17.213 - Nicotine dependence, cigarettes, with withdrawal (3) Substance induced mood disorder Status: Suspected - AMA Did Patient Leave Against Medical Advice: No
== END 2019-07-25 09:44 | disposition home or self-care (01) | DRG 775 ==
LOC: YASAS 17:05 → Y3N 20:53
PROVIDERS: ADMIT Surgery; ATTEND Surgery
PROC: HZ2ZZZZ Detoxification Services for Substance Abuse Treatment (ICD-10-PCS; principal; 2019-07-21)
DX: F10.230 Alcohol dependence with withdrawal, uncomplicated (principal); F17.213 Nicotine dependence, cigarettes, with withdrawal; F10.24 Alcohol dependence with alcohol-induced mood disorder; F10.282 Alcohol dependence with alcohol-induced sleep disorder; F19.24 Other psychoactive substance dependence with psychoactive substance-induced mood disorder; F32.9 Major depressive disorder, single episode, unspecified; Z86.69 Personal history of other diseases of the nervous system and sense organs
CPT/HCPCS: 36415; 80053; 81025; 85027; 86593